=== PATIENT | female | born 1985 | race Caucasian/White ===

== ENCOUNTER → 2017-11-02 | Outpatient (CLI) | payer OTHER ==
[~2017-11-02] MED LIST: CALC-515 PO; PREN-127 PO; RANI-366 PO
== END ==
LOC: LAB 14:29
PROVIDERS: ATTEND Obstetrics & Gynecology
DX: R42 Dizziness and giddiness (principal)
CPT/HCPCS: 36415; 82040; 82247; 82310; 82374; 82435; 82565; 82947; 84075; 84132; 84155; 84295; 84450; 84460; 84520; 85027

== ENCOUNTER → 2017-11-16 | Outpatient (CLI) | payer OTHER | LOC: LAB 14:13 | PROVIDERS: ATTEND Obstetrics & Gynecology | DX: Z34.03 Encounter for supervision of normal first pregnancy, third trimester (principal) | CPT/HCPCS: 87081 ==

== ENCOUNTER 2017-12-08 03:49 | Inpatient (IN) | payer OTHER ==
[~2017-12-08] VITALS: Ht 162.6 cm; Wt 71.2 kg
[~2017-12-08 03:49] MED LIST changes: +OMEP-125 PO
[2017-12-08] MEDS ORDERED: OXYTOCIN 30 UNIT/D5LR 500 ML 500 ML ONE (04:33)
[2017-12-08] MEDS ORDERED: LR(*) 1000 ML BAG 2,000 ML ONE (04:33)
[2017-12-08 04:34] LABS: PLATELET COUNT, AUTOMATED 257 K/uL (150-450)
[2017-12-08] MEDS ORDERED: ceFAZolin(*) 2GM/D5W 50ML 50 ML IVPB PRN (04:42)
[2017-12-08] MEDS ORDERED: FAMOTIDINE(*) 20MG/50ML PREMIX 50 ML IVPB PRN (04:42)
[2017-12-08] MEDS ORDERED: OXYTOCIN 30 UNIT/D5LR 500 ML 500 ML IV PRN ×3 (04:42→07:10)
[2017-12-08 04:45] VITALS: BP 114/68; Ht 162.6 cm; Wt 71.2 kg
[2017-12-08] MEDS ORDERED: ACETAMINOPHEN 500 MG TAB PO PRN (04:45)
[2017-12-08] MEDS ORDERED: METOCLOPRAMIDE 10 MG/2 ML SDV IVP PRN (04:45)
[2017-12-08] MEDS ORDERED: LIDOCAINE 1% LOCAL 300 MG/30ML INJ PRN (04:45)
[2017-12-08] MEDS ORDERED: ONDANSETRON 4 MG/2 ML VIAL IVP PRN (04:45)
[2017-12-08] MEDS: LR(*) 1000 ML BAG 1,000 ML IV PRN ×5 (05:17→23:30)
[2017-12-08] MEDS ORDERED: LIDOCAINE/PF 2% 200MG/10ML AMP 200 MG/10 ML AMPUL EPI PRN (06:50)
[2017-12-08] MEDS ORDERED: BUPIVACAINE 0.5% INJ 30ML VIAL EPI PRN (06:50)
[2017-12-08] MEDS ORDERED: LIDO/EPI 2% MPF 1:200,000 20ML EPI PRN (06:50)
[2017-12-08] MEDS ORDERED: FENTANYL/ROPIVACAINE 100 ML BAG EPI PRN (06:50)
[2017-12-08] MEDS ORDERED: EPIDURAL KEYS XX PRN (06:50)
[2017-12-08] MEDS: BUPIVACAINE 0.25% MPF INJ EPI PRN ×2 (07:12→11:56)
[2017-12-08] MEDS: fentaNYL CITR 100 MCG/2 ML AMP IT PRN ×2 (07:13→11:59)
[2017-12-08] MEDS: fentaNYL CITR 100 MCG/2 ML AMP IVP PRN ×2 (08:40→10:22)
--- NOTE | 2017-12-08 11:57 | History & Physical ---
History of Present Illness Age of Patient: 32 : 1 Para or TPAL: 0 EDC per LMP: Dec 11, 2017 Estimated Gestational Age: 39.3 Chief Complaint Water Broke History of Present Illness Pt is a 32 y/o @ 39-3/7 weeks gestation who presents to L&D with a chief complaint of "My water broke. Pt reports that this happened around 2 am this morning. Reports irregular contractions. Good movement. No vaginal bleeding. History Patient's Blood Type: B Positive Rubella Status: Immune Group B Strep Screen: Negative Obstetrical History: Primigravid Past Medical History: Non contributory Allergies: Coded Allergies: No Known Drug Allergies (Unverified , 10/19/17) Social History: Denies X 3 Family History: FH: diabetes mellitus MGF FH: leukemia MGF Med Rec Home Meds Active Scripts Omeprazole (OMEPRAZOLE) 20 Mg Capsule.dr, 1 CAP PO QDAY, #30 CAP 0 Refills Prov:RATNA LOVELL MD 12/01/17 Reported Medications Calcium Carbonate (TUMS) 200 Mg Tab.chew, 200 MG PO, TAB.CHEW 10/19/17 Vits W-Ca,Fe,Fa(<1MG) ( VITAMINS) 1 Each Tablet, 1 EACH PO DAILY, TAB 10/12/17 Review of Systems All Systems Reviewed/Normal: Yes, Except as Noted Constitutional: No Fever, No Weight Loss, No Weight Gain, No Chills, No Night Sweats, No Other Neurological: No Syncope, No Confusion, No Weakness, No Dizziness, No Slurred Speech, No Other Eyes: No Vision Change, No Loss of Vision, No Photophobia, No Other ENT: No Hearing Loss, No Sinus Congestion, No Sore Throat, No Ear Ache, No Tinnitus, No Other Cardiovascular: No Chest Pain, No Palpitations, No Orthostatic Hypotension, No Other Respiratory: No Shortness of Breath, No Cough, No Wheezing, No Other Gastrointestinal: No Nausea, No Vomiting, No Diarrhea, No Dysphagia, No Constipation, No Early Satiety, No Hematemesis, No Hematochezia, No Melena, No Abdominal Pain, No Other Genitourinary: No Dysuria, No Hematuria, No Urinary Incontinence, No Other Musculoskeletal: No Pain, No Sprain, No Strain, No Impaired Mobility, No Other Psychiatric: No Depression, No Anxiety, No Other Exam General Exam Vital Signs Vital Signs Date Time Temp Pulse Resp B/P (MAP) Pulse Ox O2 Delivery O2 Flow Rate FiO2 12/08/17 04:45 98.1 78 18 114/68 (83) 95 Room Air General Apperance: Alert/Awake/No Acute Distress Neuro: No Gross deficits Eyes: Normal Extraocular Movement & Vison, PERRLA ENT: Normal Cardiovascular: Regular Rate and Rhythm Respiratory: No Respiratory Distress, Clear to Auscultation Abdomen: Soft, Non-Tender, Non-Distended : Normal Musculoskeletal: No Weakness/Pain Extremities: No Cyanosis,Clubbing or Edema Integumentary: Skin Intact without Lesions or Rash Psychological: Alert & Oriented X3, Appropriate Mood & Affect Vaginal Discharge/Fluid?: Clear Fluid Cervical Dialation: 4 Cervical Effacement (%): 80 Cervical Consistency: Soft Cervical Position: Posterior Station: -2 Presentation: Vertex Uterine Contractions(Q min): 3 Uterine Contraction Strength: Moderate UC Resting Tone: Soft Fetus Feeling Movement?: Yes Heart Tones: 135 Heart Tone Variabilty: Moderate FHT Accelerations: 15X15 FHT Decelerations: None FHT Category: I Medical Decision Making Data Points Result Diagram: 12/08/17 0426 Pre-Admit Course Medical Record Review: Yes VTE Prophylasis: Adult Deep Vein Thrombosis/Pulmonary: No Assessment and Plan BEAM WARPER Assessment: Stable BEAM WARPER Plan: Routine Labor Care Problems: (1) Spontaneous rupture of amniotic membranes Assessment & Plan: Pt had initial difficulty getting epidural. Epidural has now been placed. Will recheck cervix and see if any progress. If no progress will start oxytocin. DANA KAISER DO Dec 08, 2017 11:57
--- NOTE | 2017-12-08 12:05 | Procedure Note ---
Anesthetic Placement Note Permit for Anesthesia Signed: Yes Anesthesia Technique: Patient Sitting Anesthesia Prep: Chlorhexidine Interspace: Other (L1) Local Anesthetic: 1% Lidocaine, 25 Gauge Needle Amount Local - cc's: 3 Anesthesia Needle: 17g Touhy/Schliff Anesthesia Attempts: 1 Loss of Resistance: Normal Saline Depth of DILIA (cm): 6 Epidural Needle Placement: No CSF, No Blood, No Parasthesia Catheter Insertion (cm): 13 Catheter Type: Moses - Spring Wound Epidural Dressing: Tegaderm, Tape, Adhesive [place] Anesthesia Tray: Lot Number Anesthesia Medications: Epidural Test Dose: 1.5 Lido/Epi (1:200,000), Dose - mL (3), Time (1144), Negative Epidural Loading Dose: 0.25% Marcaine, Dose - ml (15), Time (1150) Complications: None Comment: Procedure done by AR Lisa CRNA Dec 08, 2017 12:05
--- NOTE | 2017-12-08 12:41 | Procedure Note ---
Anesthetic Placement Note Anesthesia Plan: CSE Permit for Anesthesia Signed: Yes Anesthesia Technique: Patient Sitting Anesthesia Prep: Chlorhexidine Interspace: L 4-5 Local Anesthetic: 1% Lidocaine, 25 Gauge Needle Amount Local - cc's: 3 Anesthesia Needle: 17g Touhy/Schliff Anesthesia Attempts: 2 Loss of Resistance: Normal Saline Depth of DILIA (cm): 6 (DILIA but catheter will not thread) Anesthesia Tray: Lot Number ([id number]), Expiration Date (2019-01-14), Reference Number ([id number]) AR CHASE CRNA Dec 08, 2017 12:41
--- NOTE | 2017-12-08 12:44 | Anesthesia Progress Note ---
Progress/Maintenance Anesthesia Note Time: 08:45 Pain Intensity: 5 Pump: Off Motor Level: Bending Knees-Bilateral Assessment and Plan Assessment: Attempted CSE placement at L4/5 and L3/4 X 3 attempts. Unable to get DILIA and catheter placement. Patient placed in lateral position for X 1 attempt (DILIA but could not thread catheter. AR CHASE TIRE INSTALLER Dec 08, 2017 12:44
[2017-12-08] MEDS ORDERED: PHENYLEPHRINE 10 MG/1 ML VIAL ONE (12:46)
--- NOTE | 2017-12-08 12:47 | Anesthesia Progress Note ---
Progress/Maintenance Anesthesia Note Time: 12:20 Pain Intensity: 6 Pump: On Pump Rate (ML/HR): 10 Sensory Level: t10 Motor Level: Bending Knees-Bilateral Dilatation: 4 Position: Right, Tilt Drug Bolus: Other (50 mcg fentanyl bolused via epidural cath. ) Anesthesia Treatment: patient comfortable with adequate pain relief Assessment and Plan Anesthesia Plan: AR VASQUEZ CRNA Dec 08, 2017 12:47
--- NOTE | 2017-12-08 12:49 | Anesthesia Progress Note ---
Progress/Maintenance Anesthesia Note Time: 10:33 Pain Intensity: 5 Pump: Off Assessment and Plan Anesthesia Plan: LEB Assessment: Attempted epidural placement in sitting position. DILIA but could not thread catheter. Assessment 1 attempt of epidural catheter placement. DILIA but could not thread catheter at L3/4 space. AR CHASE WET PLANT OPERATOR Dec 08, 2017 12:49
--- NOTE | 2017-12-08 12:52 | Procedure Note ---
Anesthetic Placement Note Anesthesia Plan: LEB Permit for Anesthesia Signed: Yes Anesthesia Technique: Patient Sitting Anesthesia Prep: Chlorhexidine Interspace: L 4-5 Local Anesthetic: 1% Lidocaine, 25 Gauge Needle Amount Local - cc's: 3 Anesthesia Needle: 17g Touhy/Schliff Anesthesia Attempts: 2 Loss of Resistance: Normal Saline Depth of DILIA (cm): 6 Epidural Needle Placement: No CSF, No Blood, No Parasthesia Catheter Insertion (cm): 9 Catheter Type: Moses - Spring Wound Epidural Dressing: Tegaderm Anesthesia Tray: Lot Number ([id number]), Expiration Date (2019-01-14), Reference Number ([id number]) Comment: Unable to give test dose via epidural catheter. Catheter removed with tip intact. AR CHASE CRNA Dec 08, 2017 12:52
--- NOTE | 2017-12-08 13:31 | Anesthesia OB Pre-Anes Eval ---
History of Present Illness Anesthesia Start Time: 07:30 OB Anesthesia Diagnosis: induction - elective EDC: Dec 08, 2017 : 1 Para: 0 Pain Ratin Result Diagram: 12/08/17 0426 Height (Inches): 64.00 Weight (Pounds): 157 BMI Calculated: 26.95 Past Medical History Medical History: no pertinent history Surgical History: noncontributory Attended Childbirth Classes?: No Hx Anesthesia Reactions: No Hx Family Anesthesia Reaction: No Home Meds Active Scripts Omeprazole (OMEPRAZOLE) 20 Mg Capsule.dr, 1 CAP PO QDAY, #30 CAP 0 Refills Prov:RATNA LOVELL MD 12/01/17 Reported Medications Calcium Carbonate (TUMS) 200 Mg Tab.chew, 200 MG PO, TAB.CHEW 10/19/17 Vits W-Ca,Fe,Fa(<1MG) ( VITAMINS) 1 Each Tablet, 1 EACH PO DAILY, TAB 10/12/17 Allergies: Coded Allergies: No Known Drug Allergies (Unverified , 10/19/17) Anesthesia OB ROS Airway Class: ll GI ROS: clear liquids Last Solids Date: Dec 07, 2017 Last Solids Time: 21:00 ASA Classification: 2 Assessment and Plan Anesthesia Plan: AR KURTZ CRNA Dec 08, 2017 13:30
--- NOTE | 2017-12-08 14:15 | Anesthesia Progress Note ---
Progress/Maintenance Anesthesia Note Time: 20:12 Pain Intensity: 0 Pump: On Pump Rate (ML/HR): 8 (from 10ml/hr to 8ml/hr) Sensory Level: t9 Motor Level: Bending Knees-Bilateral Position: Left, Tilt AR CHASE CRNA Dec 08, 2017 14:14
--- NOTE | 2017-12-08 15:32 | Anesthesia Progress Note ---
Progress/Maintenance Anesthesia Note Time: 15:29 Pain Intensity: 0 Pump: On Pump Rate (ML/HR): 6 (decreased to 6ml/hr) Sensory Level: t10 Motor Level: Bending Knees-Bilateral Dilatation: 6 Position: Right, Tilt AR CHASE CRNA Dec 08, 2017 15:32
--- NOTE | 2017-12-08 19:31 | Labor Progress Note ---
Labor Subjective Progress Notes Subjective Doing good. Comfortable with epidural. Beginning to get the urge to push. Feeling Movement?: Yes Vaginal Discharge/Fluid: Clear Fluid, Moderate Amount Labor Pain: Mild Neurological: No Headache, No Other Eyes: No Visual Disturbances Labor Objective Vital Signs Vital Signs Date Time Temp Pulse Resp B/P (MAP) Pulse Ox O2 Delivery O2 Flow Rate FiO2 12/08/17 04:45 98.1 78 18 114/68 (83) 95 Room Air Cervical Dialation: 10 Cervical Effacement (%): 100 Cervical Consistency: Soft Cervical Position: Anterior Station: +2 Presentation: Vertex Uterine Contractions(Q min): 3 Uterine Contraction Strength: Moderate Fetus Heart Tones: 135 Heart Tone Variabilty: Moderate FHT Accelerations: 15X15 FHT Decelerations: None FHT Category: I Other Result Diagram: 12/08/17 0426 Assessment and Plan HELMET COVERER Assessment: Stable HELMET COVERER Plan: Routine Labor Care Problems: (1) Spontaneous rupture of amniotic membranes Assessment & Plan: If patient remains comfortable may labor down for 45-60 minutes. If she begins to get uncomfortable will do active management and push. DANA KAISER DO Dec 08, 2017 19:31
[2017-12-08] MEDS ORDERED: MISOPROSTOL 200 MCG TAB ONE (21:13)
[2017-12-08] MEDS ORDERED: NS(*) 0.9% 1000 ML BAG 1,000 ML ONE (21:13)
[2017-12-08] MEDS ORDERED: METHYLERGONOVINE MAL 0.2MG/ML ONE (21:14)
[2017-12-08] MEDS ORDERED: CARBOPROST TROMETHAM 250MCG/ML IM ONLY ONE (21:14)
[2017-12-08] MEDS ORDERED: OXYTOCIN 30 UNIT/D5LR 500 ML 0 ML ONE (21:14)
--- NOTE | 2017-12-08 22:35 | Anesthesia Progress Note ---
Progress/Maintenance Anesthesia Note Time: 22:30 Pump: Off Drug Bolus: 0.2% Ropivicaine (5ml bolus dose after 2/2 vaginal tear), Fentanyl 2mcg/ml Assessment and Plan Anesthesia Plan: LEB Assessment viable baby boy born. bolus dose for vaginal tear. Anesthesia Stop Time: 22:29 AR CHASE CRNA Dec 08, 2017 22:35
[2017-12-08] MEDS ORDERED: INFLUENZA VIRUS VAC 0.5 ML SYR IM ONLY ONE (23:35)
[2017-12-08] MEDS ORDERED: MEASLES,MUMP,RUBELLA VAC 0.5ML SC ONE (23:35)
[2017-12-08] MEDS ORDERED: ACETAMINOPHEN 325 MG TAB PO PRN (23:35)
[2017-12-08] MEDS ORDERED: MAGNESIUM HYDROXIDE* 30ML UDCP PO PRN (23:35)
[2017-12-08] MEDS ORDERED: DIPHTH/TETANUS/ACEL. PERTUSSIS IM ONE (23:35)
[2017-12-08] MEDS ORDERED: HYDROCORTISONE 2.5% CR 30GM TB PR PRN (23:35)
[2017-12-09] VITALS (19 sets, daily range): BP systolic 88–133; BP diastolic 50–70
--- NOTE | 2017-12-09 | OB Delivery Note ---
Delivery Note Vaginal Delivery Type: Low, Vacuum Delivery Date: Dec 08, 2017 Delivery Time: 22:14 Estimated Gestational Age(wks): 39.3 Indication (if vag op): Maternal Exhaustion/Poor Maternal Effort Length of Labor Stage I (hrs): 8 Length of Labor Stage II (hrs): 4 Labor Stage III (minutes): 7 Delivery Anesthesia: Epidural Infant Sex: Male Weight (gms): 3220 (7#2oz) Apgars: 1 Minute (9), 5 Minute Repair Needed: Labial (bilateral), 3rd Degree Estimated Blood Loss: 800 Delivery Complications: Laceration (3rd degree with significant bleeding from laceration) DANA KAISER DO Dec 09, 2017 00:00
[2017-12-09] MEDS: IBUPROFEN 800 MG TAB PO SCH ×3 (01:30→17:45)
[2017-12-09] MEDS: GLYCERIN/WITCH HAZEL LEAF 1 PK TOP PRN (03:24)
[2017-12-09] MEDS: BENZOCAINE 20% 60 ML BTL TP PRN ×2 (03:24→08:56)
[2017-12-09] MEDS ORDERED: NS(*) 0.9% 1000 ML BAG 1,000 ML IV PRN (03:30)
[2017-12-09] MEDS: APAP/HYDROCODONE 325/5 TAB PO PRN ×4 (04:41→18:33)
[2017-12-09] MEDS: LANOLIN OINT 7 GM TUBE TP PRN (08:56)
[2017-12-09] MEDS: DOCUSATE CALCIUM 240 MG CAP PO SCH ×2 (08:56→21:29)
--- NOTE | 2017-12-09 11:09 | DELIVERY NOTE ---
DELIVERY DATE: December 08, 2017 SURGEON: Burt Dennis M.D. ANESTHESIA: Epidural. PREOPERATIVE DIAGNOSIS 1. 32-year-old 1, para 0 at 39 and 3/7 weeks gestation. 2. Spontaneous rupture of membranes. POSTOPERATIVE DIAGNOSIS 1. 32-year-old 1, para 0 at 39 and 3/7 weeks gestation. 2. Spontaneous rupture of membranes. 3. Delivered. PROCEDURE Vacuum-assisted vaginal delivery with repair of third degree midline laceration and bilateral labial lacerations. FINDINGS Live-born male at 2214 with Apgars of 9 and 9, weighing 3220 grams, 7 pounds, 2 ounces, three-vessel cord, intact placenta over a third-degree midline laceration with bilateral labial lacerations. ESTIMATED BLOOD LOSS 900 mL. PATHOLOGY None. COMPLICATIONS Third-degree midline laceration with hypotension secondary to likely blood loss secondary to laceration. CONDITION Stable x2. Infant and mother to remain in LDRP. COUNTS Correct for all needles, laps, sponges and instruments. LABOR SUMMARY Patient is a 32-year-old 1, para 0 at 39 and 3/7 weeks gestation who presents to Labor and Delivery for chief complaint of loss of amniotic fluid. She was found to be grossly ruptured, 3-4 cm, yonathan irregularly. She made initial cervical change to 4 cm, requesting epidural. After multiple attempts on three separate occasions, anesthesia was eventually able to get an epidural. Once epidural was placed, the patient was comfortable. She was checked and found to be 4-5 cm. Oxytocin was started to help with uterine contractions to get an adequate pattern. The patient was 5 cm for approximately three hours and continued to slowly progress to eventually complete and +2. She was allowed to labor down for approximately 45 minutes to one hour. After labor-down process, the patient was coached by nursing staff on how to push. Approximately 1-1/2 to 2 hours after pushing, the delivery team was called and assembled. DELIVERY SUMMARY Patient was placed in the dorsal lithotomy position. The infant was noted to be occiput anterior. Adams catheter was removed. Cervix was noted to be completed dilated. Secondary to maternal exhaustion and poor maternal effort, the patient was counseled on a vacuum assisted vaginal delivery. This would be a low vacuum-assist delivery. The patient understands the risks to include hematoma on the infant up to a subgaleal hematoma, possibility of worsening laceration from mom as well as the possibility of carmelita and/or shoulder distortion. The patient understands the risks and desires to proceed with a vacuum-assisted delivery. With the catheter recently removed, the bladder was completely drained. The cervix was noted to be completely dilated and the station was +2. Infant vertex noted to be Occiput Anterior. The vacuum was placed approximately 2 cm in front of the posterior fontanelle. With maternal effort, the vacuum was found to be clear of maternal tissues. Suction was applied to 550 mmHg, in the green zone of the KIWI Vacuum. Gentle traction was applied with maternal effort with significant descent noted on the first pull. There was one pop-off noted during the duration of this vacuum-assisted delivery. Vacuum suction was removed in between contractions with the vacuum remaining applied to the scalp. There were a total of four contractions with the vacuum applied. With the fourth contraction, there was noted and once the chin was controlled the vacuum was removed. With gentle downward motion, the anterior shoulders were delivered. With gentle upward motion, the posterior shoulders delivered. The remainder of the 's body delivered spontaneously. There was terminal meconium noted. At this point, a vigorous male delivered. Mouth and nose were bulb suctioned. Once the infant was crying, it was placed on maternal abdomen, where it was tended after by the nursing staff. Approximately two minutes after delivery, the cord was cut by the 's father. Cord blood gasses were obtained. The cord banking process was completed according to the specific bank's instructions. The placenta delivered spontaneously with gentle cord traction. Oxytocin was infused to help with uterine tone. Uterus massaged, deemed firm. Upon inspection of the perineum, vagina, cervix and labia, it was noted that there was a third-degree midline laceration as well as bilateral labial laceration. The digital rectal exam was performed to ensure no rectal mucosa was involved. The external anal sphincter was grasped with Allis clamps. This was reapproximated using end-to-end anastomosis with a 3-0 Vicryl with multiple interrupted sutures posteriorly and then anteriorly. Reinforcing sutures were then placed over the top that also included the transverse perineal muscle with the third-degree laceration repaired. Attention was then turned to finishing the second-degree repair. This repair was performed in the usual manner using 3 -0 Vicryl in a running manner with the third-degree noted to be completely repaired. It was noted to be hemostatic. Digital rectal exam again performed with no suture noted in the rectum and good rectal tone noted. The left labial laceration did have a significant area that appeared to have an arterial tear. This was quickly identified and grasped with a hemostat and then suture ligated with 3-0 Vicryl. The left labial laceration was repaired in a running manner. The right labial laceration was repaired with 4-0 Vicryl in a running manner. With lacerations inspected and hemostatic, the patient was cleaned and labor bed was reassembled. With the patient back in the dorsal supine position, she noted significant nausea with loss of color. Blood pressure was taken initially and was noted to be 74/50. Repeat was 62/42. The patient remained conscious during this entire thing. Second IV was started with a stat hemoglobin and hematocrit collected at that time. The patient did receive 2-liters of lactated ringers for fluid bolus. The hemoglobin and hematocrit was reported at 9.8 and 29.6. After the second liter of lactated ringers was infused, the patient's blood pressure was back in the 110s/60s with the heart rate remaining in the 100-110s. Two units of packed red blood cells were typed and crossed. At this point, the decision was made to hold those units and repeat the hemoglobin and hematocrit approximately four hours later or if patient develops symptoms. With the expectation that hemoglobin will continue to drop, there is a great chance that she may need some blood transfused. We will monitor this closely. ITZEL
--- NOTE | 2017-12-09 12:14 | OB/GYN Progress Note ---
OB Subjective Progress Notes Subjective Patient doing good this morning. Does report that she has significant pain in her bottom. Reports still having some swelling. Pain is improved with ice pack and pain medications. Reports some difficulty with breast-feeding and discomfort. Patient reports bleeding normal. Has not ambulated. Tolerating regular diet. GI: NEG Nausea, NEG Vomiting, NEG Flatus, NEG Bowel Movement : Other (lara catheter) Pain: Moderate, Tolerating PO Pain Meds Neurological: No Headache, No Other Eyes: No Visual Disturbances OB Objective Physical Exam Vital Signs Date Time Temp Pulse Resp B/P (MAP) Pulse Ox O2 Delivery O2 Flow Rate FiO2 12/09/17 06:33 98.0 93 16 112/60 (77) 95 Room Air General Appearance: Alert/Awake/No Acute Distress Neurological: No Gross deficits Eyes: Normal Extraocular Movement & Vison, PERRLA Respiratory: No Respiratory Distress, Clear to Auscultation Abdomen: Soft, Non-Tender, Non-Distended, Fundus Firm Extremities: No Cyanosis,Clubbing or Edema Integumentary: Skin Intact without Lesions or Rash Psychological: Alert & Oriented X3, Appropriate Mood & Affect Result Diagram: 12/09/17 0555 Assessment and Plan FASHION DIRECTOR Assessment: Stable FASHION DIRECTOR Plan: Routine Post- Care Problems: (1) Spontaneous rupture of amniotic membranes Status: Resolved (2) Status post vacuum-assisted vaginal delivery Assessment & Plan: Will discontinue Lara catheter today. Patient had catheter secondary to significant hypotension post . Patient did receive 1 unit of packed red blood cells with a follow-up CBC that was improved with patient a longer being symptomatic. Urine output was adequate throughout the night. Encourage patient today to continue breast-feeding. Also encouraged patient to ambulate as possible. Patient to do sitz bath to help with pain. Will also had external post stool softening secondary to her third-degree laceration. DANA KAISER DO Dec 09, 2017 12:14
[2017-12-09] MEDS: POLYETHYLENE GLYCOL 17 GM PKT PO SCH (14:28)
[2017-12-10] MEDS: IBUPROFEN 800 MG TAB PO SCH ×3 (01:21→16:30)
[2017-12-10] MEDS: APAP/HYDROCODONE 325/5 TAB PO PRN ×2 (01:21→15:25)
[2017-12-10 04:00] VITALS: BP 111/60
[2017-12-10 08:00] VITALS: BP 108/69
[2017-12-10] MEDS: POLYETHYLENE GLYCOL 17 GM PKT PO SCH (09:00)
[2017-12-10] MEDS: DOCUSATE CALCIUM 240 MG CAP PO SCH (09:00)
[2017-12-10 10:29] VITALS: BP 105/53
--- NOTE | 2017-12-10 12:12 | OB/GYN Progress Note ---
OB Subjective Progress Notes Subjective Doing good this morning. Does report that she has some chest pain that comes and goes. Reports that when she is having the chest pain she also is short of breath and isn't able to calm down. Pt reports is still uncomfortable. Lochia appropriate. Pain along repair but controlled with pain medication. GI: NEG Nausea, NEG Vomiting, NEG Flatus, NEG Bowel Movement : Voiding Well, Vaginal Bleeding, Scant Pain: Mild, Tolerating PO Pain Meds Neurological: No Headache, No Other Eyes: No Visual Disturbances OB Objective Physical Exam Vital Signs Date Time Temp Pulse Resp B/P (MAP) Pulse Ox O2 Delivery O2 Flow Rate FiO2 12/10/17 10:29 98.9 94 20 105/53 (70) 99 Room Air Intake and Output 12/11/17 07:00 Intake Total 120 ml Output Total 625 ml Balance -505 ml Intake Oral 120 ml Output Urine Total 625 ml General Appearance: Alert/Awake/No Acute Distress Neurological: No Gross deficits Eyes: Normal Extraocular Movement & Vison, PERRLA Respiratory: No Respiratory Distress, Clear to Auscultation Abdomen: Soft, Non-Tender, Non-Distended, Fundus Firm Extremities: No Cyanosis,Clubbing or Edema Integumentary: Skin Intact without Lesions or Rash Psychological: Alert & Oriented X3, Appropriate Mood & Affect Result Diagram: 12/09/17 0555 Assessment and Plan GLASS SETTER Assessment: Stable GLASS SETTER Plan: Routine Post- Care Problems: (1) Spontaneous rupture of amniotic membranes Status: Resolved (2) Status post vacuum-assisted vaginal delivery Assessment & Plan: Chest pain: Discussed this with nursing staff whom feels it is anxiety related. Pain isn't constant. Will order EKG to rule out any cardiac issues. If this persists could consider CT of the chest. I'm hesitant on doing a CT secondary to pain and SOB being occasionally and never while sleeping. Will repeat H&H and CMP. Pt hemoglobin was stable yesterday after 1 unit of PRBC. 3rd degree laceration: continue stool softener TID until narcotic use has been completed. Post Care: If labs are normal from above will discharge home today. DANA KAISER DO Dec 10, 2017 12:12
[2017-12-10] MEDS ORDERED: IBUP800T37 PO (12:15)
[2017-12-10] MEDS ORDERED: DOCU-416 PO (12:15)
[2017-12-10] MEDS ORDERED: LOR5/325 PO (12:15)
--- NOTE | 2017-12-10 12:18 | OB/GYN Discharge Summary ---
Discharge Summary Reason for Hosp/Final Diag: (1) Spontaneous rupture of amniotic membranes Status: Resolved (2) Status post vacuum-assisted vaginal delivery Status: Acute Hospital Course & Plan: Pt presented with SROM and progressed to complete and plus 2. Did require operative vaginal delivery for exhaustion and effort. (see delivery note for details). Pt was hypotensive after completion of repair and did get a 2 L bolus of IV fluids and 1 unit of PRBC's. Only received one unit of PRBC's as her H&H came back >9 with BP remaining normal. Pt remained on LDRP for 2 days post and was discharged home. Lates Vital Signs Vital Signs Date Time Temp Pulse Resp B/P (MAP) Pulse Ox O2 Delivery O2 Flow Rate FiO2 12/10/17 10:29 98.9 94 20 105/53 (70) 99 Room Air Weight (Pounds): 157 Result Diagram: 12/09/17 0555 Condition: Improved Discharge: Home Home Meds Active Scripts Docusate Sodium (COLACE) 100 Mg Capsule, 100 MG PO TID, #60 CAPSULE 1 Refill Prov:DANA KAISER DO 12/10/17 Ibuprofen (IBUPROFEN) 800 Mg Tablet, 800 MG PO Q8H, #30 TAB 0 Refills Prov:DANA KAISER DO 12/10/17 Hydrocodone Bit/Acetaminophen (HYDROCODON-ACETAMINOPHEN 5-325) 1 Each Tablet, 1- 2 EACH PO Q4H Y for PAIN, #30 TAB 0 Refills Prov:DANA KAISER DO 12/10/17 Omeprazole (OMEPRAZOLE) 20 Mg Capsule., 1 CAP PO QDAY, #30 CAP 0 Refills Prov:RATNA LOVELL MD 12/01/17 Reported Medications Calcium Carbonate (TUMS) 200 Mg Tab.chew, 200 MG PO, TAB.CHEW 10/19/17 Vits W-Ca,Fe,Fa(<1MG) ( VITAMINS) 1 Each Tablet, 1 EACH PO DAILY, TAB 10/12/17 Follow up with: [facility] [phone] Follow up in: 2 wks PO Discharge Diet: As Tolerates, Resume Prior Admit Diet Discharge Activity: No Heavy Lifting > 10lb, Pelvic Rest DANA KAISER DO Dec 10, 2017 12:18
--- NOTE | 2017-12-10 13:12 | EKG ---
FACILITY: [facility] PATIENT NAME: GEE WOLF : [id number] MR: [id number] V: [id number] EXAM DATE: ORDERING PHYSICIAN: DANA KAISER TECHNOLOGIST: OSMEL Bello Reason : CHEST PAIN Blood Pressure : / mmHG Vent. Rate : 106 BPM Atrial Rate : 106 BPM P-R Int : 148 ms QRS Dur : 078 ms QT Int : 330 ms P-R-T Axes : 044 039 039 degrees QTc Int : 438 ms Sinus tachycardia Otherwise normal ECG No previous ECGs available Confirmed by Darius Delaney ([id number]) on 12/10/2017 5:29:24 PM Referred By: JOB Confirmed By:Darius Méndez
[2017-12-10 15:00] VITALS: BP 120/75
[2017-12-10] MEDS: GLYCERIN/WITCH HAZEL LEAF 1 PK TOP PRN ×2 (15:25→18:01)
[2017-12-10] MEDS: LANOLIN OINT 7 GM TUBE TP PRN (16:32)
--- NOTE | 2017-12-10 17:13 | Anesthesia Post Eval Note ---
Anesthesia Post Eval Note Vital Signs Date Time Temp Pulse Resp B/P (MAP) Pulse Ox O2 Delivery O2 Flow Rate FiO2 12/10/17 15:00 98.1 123 12 120/75 (90) 97 Room Air Pt able to participate in Eval: Yes Cardiovascular Status: Satisfactory Respiratory Status: Satisfactory Pain Managment: Satisfactory PO Nausea/Vomiting: Satisfactory Temperature Management: Satisfactory Mental Status: Satisfactory, Alert, Oriented X3 Post-Op Hydration Status: Satisfactory, Tolerating PO Well, Voiding w/o Difficulty Anesthesia Type: LEB Anesthesia Tolerance: LP site clear, no redness or edema. Denies headache or any residual paresthesia. Vital Signs Stable, Patient comfortable and condition stable. JOANNA GAMA CRNA Dec 10, 2017 17:13
[2017-12-10] MEDS: BENZOCAINE 20% 60 ML BTL TP PRN (18:01)
[2017-12-10 20:20] VITALS: BP 127/65
[2017-12-14] MEDS ORDERED: AMOX-559 PO (15:07)
[2017-12-14] MEDS ORDERED: METR-1 PO (15:07)
== END 2017-12-10 21:30 | disposition home or self-care (01) | DRG 774 ==
LOC: OB 03:49
PROVIDERS: ADMIT Obstetrics & Gynecology; ATTEND Obstetrics & Gynecology
PROC: 10D07Z6 Extraction of Products of Conception, Vacuum, Via Natural or Artificial Opening (ICD-10-PCS; principal; 2017-12-09)
PROC: 0DQR0ZZ Repair Anal Sphincter, Open Approach (ICD-10-PCS; 2017-12-09)
PROC: 30233N1 Transfusion of Nonautologous Red Blood Cells into Peripheral Vein, Percutaneous Approach (ICD-10-PCS; 2017-12-09)
DX: O42.02 Full-term premature rupture of membranes, onset of labor within 24 hours of rupture (principal); O67.8 Other intrapartum hemorrhage; O70.20 Third degree perineal laceration during delivery, unspecified; D62 Acute posthemorrhagic anemia; O77.0 Labor and delivery complicated by meconium in amniotic fluid; O90.81 Anemia of the puerperium; O70.0 First degree perineal laceration during delivery; I95.9 Hypotension, unspecified; Z37.0 Single live birth; Z3A.39 39 weeks gestation of pregnancy
CPT/HCPCS: 36415; 82040; 82247; 82310; 82374; 82435; 82565; 82947; 84075; 84132; 84155; 84295; 84450; 84460; 84520; 85014; 85018; 85025; 85027; 86850; 86900; 86901; 86920; 93005; J2370; J2405; J3010; J7030; J7120; P9016; S0020

== ENCOUNTER → 2017-12-14 | Outpatient (CLI) | payer OTHER ==
[2017-12-08 04:45] VITALS: BMI 26.9
[~2017-12-14] MED LIST changes: +AMOX-559 PO; +DOCU-416 PO; +IBUP800T37 PO; +LOR5/325 PO; +METR-1 PO
== END ==
LOC: LAB 14:58
PROVIDERS: ATTEND Student in an Organized Health Care Education/Training Program
DX: N89.8 Other specified noninflammatory disorders of vagina (principal); R10.9 Unspecified abdominal pain; B96.20 Unspecified Escherichia coli [E. coli] as the cause of diseases classified elsewhere
CPT/HCPCS: 87070; 87073; 87077; 87186

== ENCOUNTER → 2017-12-30 | Outpatient (CLI) | payer OTHER ==
[2017-12-08 04:45] VITALS: BMI 26.9
== END ==
LOC: LAB 10:28
PROVIDERS: ATTEND Student in an Organized Health Care Education/Training Program
DX: R19.7 Diarrhea, unspecified (principal)
CPT/HCPCS: 87324; 87449

== ENCOUNTER → 2018-01-20 | Outpatient (CLI) | payer OTHER ==
[2017-12-08 04:45] VITALS: BMI 26.9
[~2018-01-20] MED LIST changes: +HYDR-4309 PO; +IOPAMIDOL 76% 75 ML INFUS BTL 75 ML ONE; +VANC125C3 PO
--- NOTE | 2018-01-20 13:47 | RADIOLOGY IMAGING REPORT ---
FACILITY: [facility] PATIENT NAME: Aparna Hernandez : 1985 MR: [id number] V: [id number] EXAM DATE: ORDERING PHYSICIAN: DANA KAISER TECHNOLOGIST: Location: [facility] Patient: Aparna Hernandez : 1985 Visit/Account:[id number] Date of Sevice: 01/20/2018 EXAMINATION: CT abdomen and pelvis with contrast COMPARISON: None. HISTORY: Abdomen and pelvic pain for 10 days with fever and diarrhea. 6 weeks. 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 PROCEDURE: Multiplanar contrast enhanced CT of the abdomen and pelvis with 75 mL intravenous Isovue 3 70. One of the following dose optimization techniques was utilized in the performance of this exam: A utomated exposure control; adjustment of the mA and/or kV according to the patient's size; or use of an iterative reconstruction technique. Specific details can be referenced in the facility's radiolo gy CT exam operational policy. FINDINGS: Evaluation of the upper abdomen is mildly limited by respiratory motion. Visualized thorax: Negative. Liver: Negative. Gallbladder and biliary system: Negative Spleen: Negative. Pancreas: Negative. Adrenal glands: Negative. Kidneys and bladder: No renal mass or evidence of an obstructive uropathy. Urinary bladder is unrema rkable. Vessels: Within normal limits. Bowel and mesentery: Stomach, small bowel, and appendix are within normal limits. Minimal stool in th e colon. There are a few regions of equivocal mild colonic wall thickening but no definite evidence o f pericolonic inflammation or wall edema. Pelvic organs: Negative. Lymph nodes: No adenopathy. Free air/free fluid: None. Abdominal wall and osseous structures: Small fat-containing umbilical hernia. Osseous structures are within normal limits. IMPRESSION: 1. Scattered regions of equivocal mild colonic wall thickening; this could be pseudothickening relate d to underdistention although given the history, a low-grade uncomplicated colitis is a possibility. 2. No findings of acute disease are otherwise identified in the abdomen or pelvis. Results were discussed with DANA KAISER at 01/20/2018 1:42 PM. Report Dictated By: Naseem Tao MD at 01/20/2018 1:27 PM Report E-Signed By: Naseem Tao MD at 01/20/2018 1:44 PM WSN:[id number]
== END ==
LOC: CT 11:24
PROVIDERS: ATTEND Student in an Organized Health Care Education/Training Program
DX: R93.3 Abnormal findings on diagnostic imaging of other parts of digestive tract (principal)
CPT/HCPCS: 74177; Q9967

== ENCOUNTER → 2018-01-20 | Outpatient (CLI) | payer OTHER ==
[2017-12-08 04:45] VITALS: BMI 26.9
[~2018-01-20] MED LIST changes: -IOPAMIDOL 76% 75 ML INFUS BTL 75 ML ONE
== END ==
LOC: LAB 11:51
PROVIDERS: ATTEND Student in an Organized Health Care Education/Training Program
DX: R19.7 Diarrhea, unspecified (principal)
CPT/HCPCS: 87045

== ENCOUNTER → 2018-01-21 | Outpatient (CLI) | payer OTHER ==
[2017-12-08 04:45] VITALS: BMI 26.9
== END ==
LOC: LAB 10:46
PROVIDERS: ATTEND Family Medicine
DX: A04.72 Enterocolitis due to Clostridium difficile, not specified as recurrent (principal); R19.7 Diarrhea, unspecified; E86.0 Dehydration
CPT/HCPCS: 36415; 82040; 82247; 82310; 82374; 82435; 82565; 82947; 83630; 84075; 84132; 84155; 84295; 84450; 84460; 84520; 85027; 87269; 87324; 87449